=== PATIENT | male | born 1940 | race Caucasian/White ===

== ENCOUNTER 2021-12-31 08:22 | Outpatient (CLI) | payer MEDICARE, SELFPAY ==
[2021-12-31 08:43] LABS: Basophils Absolute Auto 0.06 K/mm3 (0.00-0.10); Basophils Percent Auto 0.9 % (0.0-1.0); Eosinophils Absolute Auto 0.15 K/mm3 (0.02-0.50); Eosinophils Percent Auto 2.3 % (1.0-6.0); Hemoglobin 15.4 g/dL (12.4-15.3); Immature Granulocyte Absolute 0.06 K/mm3 (0.00-0.00); Immature Granulocyte Percent A 0.9 % (0.0-0.0); Lymphocytes Absolute Auto 2.18 K/mm3 (1.10-4.50); Lymphocytes Percent Auto 33.5 % (18.0-42.0); Mean Corpuscular HGB Conc 33.5 g/dL (32.0-36.0); Mean Corpuscular Hemoglobin 29.8 pg (27.0-31.0); Mean Platelet Volume 9.7 fl (8.7-11.0); Monocytes Absolute Auto 0.63 K/mm3 (0.10-0.90); Monocytes Percent Auto 9.7 % (2.0-11.0); Neutrophils Absolute Auto 3.4 K/mm3 (1.7-7.2); Neutrophils Percent Auto 52.7 % (50.0-70.0); Platelet Count Result 225 K/mm3 (150-420); Red Blood Count 5.17 M/mm3 (4.70-6.10); Red Cell Distribution Width 11.8 % (11.6-14.4); White Blood Count 6.5 K/mm3 (4.8-10.8)
[2021-12-31 09:12] LABS: Alanine Aminotransferase 41 U/L (16-63); Albumin Level 3.7 g/dL (3.4-5.0); Alkaline Phosphatase 89 U/L (46-116); Anion Gap 6 mmol/L (8-16); Aspartate Amino Transferase 24 U/L (15-37); Bilirubin,Total 0.6 mg/dL (0.00-1.00); Blood Urea Nitrogen 19 mg/dL (7-18); Calcium 8.6 mg/dL (8.5-10.1); Carbon Dioxide 29 mmol/L (21-32); Chloride 103 mmol/L (98-108); Cholesterol 189 mg/dL (0-200); Estimated Glomerular Filt Rate > 60; Glucose 101 mg/dL (70-99); HDL Direct 54 mg/dL (40-60); LDL Cholesterol Calculated 114 mg/dL (<130); Osmolality Calculated 288 mOsm/kg (285-295); Potassium 4.1 mmol/L (3.5-5.1); Prostate Specific Antigen 5.2 ng/mL (< OR = 4.0); Sodium 138 mmol/L (136-145); Triglycerides 107 mg/dL (0-150)
== END 2021-12-31 08:23 | disposition home or self-care (01) ==
PROVIDERS: PCP Internal Medicine; Visit Provider Internal Medicine
DX: E78.5 Hyperlipidemia, unspecified (principal); Z12.5 Encounter for screening for malignant neoplasm of prostate; Z00.00 Encounter for general adult medical examination without abnormal findings
CPT/HCPCS: 36415; 80053; 80061; 84153; 84443; 85025; G0103

== ENCOUNTER 2022-02-20 05:51 | Emergency (ER) | payer MEDICARE, SELFPAY ==
[2022-02-20 05:54] VITALS: BP 153/86; PULSE 88; RESP 18; TEMP 35.9; O2SAT 100
[2022-02-20 05:55] VITALS: TEMP 36
--- NOTE | 2022-02-20 06:26 | ED.GENADULT ---
HPI - General Adult General Chief complaint: Urogenital-Male Stated complaint: unable to urinate; constipation Time Seen by Provider: 02/20/22 05:58 History of Present Illness HPI narrative: 81-year-old male presented to the emergency department for evaluation of increased urinary retention. Patient states he has had some issues with a slowing of the stream but states that he is currently unable to urinate at all. Patient states he does have follow-up scheduled with primary care physician to have a PSA measured. Patient denies any prior history of urinary retention and does not have a urologist. Patient does have history of an elevated PSA and high cholesterol Related Data Home Medications Medication Instructions Recorded Confirmed fluoxetine 10 mg capsule 50 mg PO DAILY 06/19/21 01/29/22 multivitamin (Multiple Vitamins 1 tablet PO DAILY 06/19/21 01/29/22 tablet) omega 8-euw-jdb-fish oil 1,000 mg 1 cap PO DAILY 06/19/21 01/29/22 (120 mg-180 mg) capsule (Fish Oil) simvastatin 80 mg tablet 40 mg PO DAILY 06/19/21 01/29/22 tamsulosin 0.4 mg capsule 0.4 mg PO DAILY 06/19/21 01/29/22 Allergies Allergy/AdvReac Type Severity Reaction Status Date / Time No Known Allergies Allergy Verified 02/20/22 07:04 Review of Systems Review of Systems: CONSTITUTIONAL: Denies fever, chills, or sweats. EYES: Denies visual changes, redness, or discharge. ENT: Denies rhinorrhea, congestion, sore throat, or otalgia. CARDIOVASCULAR: Denies chest pain, palpitations, or edema. RESPIRATORY: Denies cough or dyspnea. GASTROINTESTINAL: Denies abdominal pain, nausea, vomiting, or diarrhea. GENITOURINARY: See HPI SKIN: Denies rash or itching. MUSCULOSKELETAL: Denies back pain, joint pain, or myalgia. NEUROLOGIC: Denies headache, numbness, or weakness. PSYCHIATRIC: Denies anxiety or depression. [facility] Social History Social History Smoking status: Former smoker Alcohol intake: current Drinks per week: 4 Substance use: never Substance use type: does not use Gender identity (if verbalized by the patient): Male Sexual Orientation (if Verbalized by the Patient): Straight or Heterosexual Spiritual care concerns: No Agree to blood products: Yes Exam Narrative: APPEARANCE: Well appearing, no pain, no distress, well-nourished. HEAD: normocephalic, atraumatic. EYES: PERRLA/EOMI, conjunctivae clear. NOSE: Normal no drainage NECK: Supple. No adenopathy, no masses. RESPIRATORY: Airway patent, respirations nonlabored. Clear to auscultation bilaterally, no rales, rhonchi, wheezing. CARDIOVASCULAR: Regular rate and rhythm without murmurs rubs or gallops. ABDOMINAL: Soft, abdominal distention, normal bowel sounds, MUSCULOSKELETAL: Moves all extremities. Strength/ROM intact, No edema, No calf tenderness. NEURO: Alert. Cranial nerves II through XII intact. Grossly intact SKIN: Warm, dry. Normal Color Course Course Emergency Course: Patient a significant amount of urine through the Painting catheter. Patient's abdomen is soft and nontender. Patient denies any complaints at this time. UA showed no evidence of urinary tract infection. Patient was started on Flomax and encouraged to have close follow-up with urology. Vital Signs Vital signs: Vital Signs Temperature 96.6 F L 02/20/22 05:54 Pulse Rate 88 02/20/22 05:54 Respiratory Rate 18 02/20/22 05:54 Blood Pressure 153/86 H 02/20/22 05:54 Pulse Oximetry 100 02/20/22 05:54 Oxygen Delivery Room Air 02/20/22 05:54 Temperature 96.8 F L 02/20/22 05:55 Pulse Rate 88 02/20/22 05:54 Respiratory Rate 18 02/20/22 05:54 Blood Pressure 153/86 H 02/20/22 05:54 Pulse Oximetry 100 02/20/22 05:54 Oxygen Delivery Room Air 02/20/22 05:54 Medical Decision Making Vital Signs Vital Signs: Vital Signs Temperature 96.6 F L 02/20/22 05:54 Pulse Rate 88 02/20/22 05:54 Respiratory Rate 18
[2022-02-20 07:03] LABS: Appearance Urine Clear (Clear); Bilirubin Urine Negative (Negative); Blood Urine Negative (Negative); Color Urine Yellow (Yellow); Glucose Urine UA Negative (Negative); Ketones Urine Negative (Negative); Leukocyte Esterase Ur Negative LEU/UL (Negative); Nitrate Urine Negative (Negative); Protein Urine Negative (Negative); Specific Grav Ur 1.015 (1.001-1.035); Urobilinogen Urine 0.2 mg/dL (<2.0)
[2022-02-20 07:09] LABS: Add Urine Microscopic? NO
--- NOTE | 2022-02-20 07:17 | PC.NURSE ---
Education done with bojorquez bag and leg drainage bag, and pt able to verbal understanding and demonstrate at this time.
[2022-02-20] MEDS: TAMSULOSIN HCL 0.4 MG CAPSULE PO (07:24)
== END 2022-02-20 07:42 | disposition home or self-care (01) ==
PROVIDERS: Emergency Provider Emergency Medicine; PCP Family Medicine
DX: R33.9 Retention of urine, unspecified (principal); E78.00 Pure hypercholesterolemia, unspecified; Z87.891 Personal history of nicotine dependence
CPT/HCPCS: 51702; 81003; 99283; A9270

== ENCOUNTER 2022-02-28 09:52 | Outpatient (CLI) | payer MEDICARE, SELFPAY ==
[2022-02-28 11:17] LABS: Prostate Specific Antigen 4.5 ng/mL (< OR = 4.0)
== END 2022-02-28 09:53 | disposition home or self-care (01) ==
PROVIDERS: PCP Family Medicine; Visit Provider Nurse Practitioner Family
DX: R97.20 Elevated prostate specific antigen [PSA] (principal); Z12.5 Encounter for screening for malignant neoplasm of prostate
CPT/HCPCS: 36415; 84153; G0103

== ENCOUNTER 2022-08-20 11:01 | Outpatient (CLI) | payer MEDICARE, SELFPAY ==
--- NOTE | ~2022-08-20 | XR_ITS ---
EXAM: XR lumbar spine 6V w bending DATE: 08/20/2022 11:37 HISTORY: lumbar back pain . COMPARISON: None available. FINDINGS: 5 nonrib-bearing lumbar-type vertebral bodies. Pedicles intact. Normal vertebral body alig nment. No listhesis detected in flexion or extension. Vertebral body heights preserved. Multilevel di sc space narrowing and marginal osteophytosis, moderate at L1-2 and L4-5. Multilevel facet sclerosis and hypertrophy with interspinous narrowing. Aortic calcification without significant aneurysm. No fr acture or dislocation. Incidental note of mild anterior wedge deformity at T12, possibly physiologic. IMPRESSION: Multilevel moderate lumbar degenerative disc disease. Multilevel moderate lumbar facet ar thropathy with interspinous narrowing. Reviewed, dictated and finalized at location K. IMPRESSION: Multilevel moderate lumbar degenerative disc disease. Multilevel mo derate lumbar facet arthropathy with interspinous narrowing.
== END 2022-08-20 11:02 | disposition home or self-care (01) ==
LOC: ANHIMG 11:03
PROVIDERS: PCP Family Medicine; Visit Provider Nurse Practitioner Family
DX: M54.50 Low back pain, unspecified (principal); M51.36 Other intervertebral disc degeneration, lumbar region; M47.816 Spondylosis without myelopathy or radiculopathy, lumbar region
CPT/HCPCS: 72114

== ENCOUNTER 2022-11-14 09:48 | Outpatient (CLI) | payer MEDICARE, SELFPAY ==
--- NOTE | ~2022-11-14 | XR_ITS ---
Left ankle Technique: AP and lateral views were obtained. Clinical History: Effusion Findings: No acute fracture or dislocation is seen. Osseous alignment is anatomic. Ankle mortise and other visualized joint spaces are preserved. Soft tissues are otherwise unremarkable. Impression: Unremarkable left ankle. Reviewed, dictated and finalized at location . Impression: Unremarkable left ankle.
--- NOTE | ~2022-11-14 | XR_ITS ---
AP and lateral views of the left tibia/fibula Clinical History: Soft tissue disorder Findings: No acute fracture or dislocation is seen. Osseous alignment is anatomic. Joint spaces are p reserved without significant erosive or degenerative change. Soft tissues are unremarkable. Impression: Unremarkable left tib-fib radiographs. Reviewed, dictated and finalized at [facility]. Impression: Unremarkable left tib-fib radiographs.
== END 2022-11-14 09:49 | disposition home or self-care (01) ==
PROVIDERS: PCP Family Medicine; Visit Provider Nurse Practitioner Family
DX: M79.89 Other specified soft tissue disorders (principal); M25.472 Effusion, left ankle
CPT/HCPCS: 73590; 73600

== ENCOUNTER 2022-12-06 06:39 | Outpatient (CLI) | payer MEDICARE, SELFPAY ==
[2022-12-06 07:52] LABS: Hematocrit 45.5 % (42.0-52.0); Hemoglobin 15.2 g/dL (14.0-18.0); Mean Corpuscular HGB Conc 33.4 g/dl (32-36); Mean Corpuscular Hemoglobin 29.9 pg (26-34); Mean Corpuscular Volume 89.6 fl (80-100); Mean Platelet Volume 10.3 fl (7.4-10.4); Platelet Count Result 226 k/mm3 (150-375); Red Blood Count 5.08 M/mm3 (4.6-6.20); Red Cell Distribution Width 12.2 % (11.5-14.5); White Blood Count 6.4 K/mm3 (4.5-10.0)
[2022-12-06 08:22] LABS: LDL Cholesterol Direct 91 mg/dL
[2022-12-06 08:28] LABS: Alanine Aminotransferase 28 U/L (6-50); Albumin Level 4.3 g/dL (3.5-5.1); Alkaline Phosphatase 60 U/L (38-126); Anion Gap 8 mmol/L (8-16); Aspartate Amino Transferase 35 U/L (17-59); Bilirubin,Total 0.8 mg/dL (0.2-1.3); Blood Urea Nitrogen 16 mg/dL (9-20); Calcium 8.6 mg/dL (8.4-10.2); Carbon Dioxide 29 mmol/L (22-30); Chloride 103 mmol/L (98-107); Cholesterol 170 mg/dL (0-200); Estimated Glomerular Filt Rate > 60; Glucose 94 mg/dL (65-110); HDL Direct 48 mg/dL; Potassium 4.1 mmol/L (3.4-5.0); Sodium 140 mmol/L (137-145); Triglycerides 121 mg/dL (<150)
== END 2022-12-06 06:40 | disposition home or self-care (01) ==
PROVIDERS: PCP Family Medicine; Visit Provider Family Medicine
DX: I49.9 Cardiac arrhythmia, unspecified (principal); N28.9 Disorder of kidney and ureter, unspecified; E78.5 Hyperlipidemia, unspecified; Z13.220 Encounter for screening for lipoid disorders
CPT/HCPCS: 36415; 80048; 80061; 80076; 84443; 85027

== ENCOUNTER 2023-06-09 17:49 | Observation (INO) | payer MEDICARE, SELFPAY ==
--- NOTE | ~2023-06-09 | XR_ITS ---
EXAMINATION: XR chest 2V DATE: 06/09/2023 19:02 INDICATION: Chest pain. TECHNIQUE: Frontal and lateral views of the chest were obtained. COMPARISON: None. FINDINGS: There is mild scarring at the lung apices. Calcified right lung nodules and calcified right hilar lymph nodes are consistent with old granulomatous disease. No pleural effusion or pneumothorax . The heart size is normal. There is mild chronic height loss of a midthoracic vertebral body. IMPRESSION: 1. Mild scarring at the lung apices. Reviewed, dictated and finalized at location E. CRINOLOGY TEACHER
--- NOTE | ~2023-06-09 | NM_ITS ---
EXAMINATION: NM stress w perf spect multi DATE: 06/10/2023 12:52 INDICATION: Chest pain TECHNIQUE: Rest images were obtained following intravenous administration of 9.8 mCi Tc99m tetrofosmi n (Minbox). The patient performed an exercise activity. At peak exercise, 31.0 mCi Tc99m tetrofosmin (NTRglobalview) was administered intravenously, and stress images were obtained. Imaging was performed in the supine position with repeat post stress images obtained in the prone position. Data was reconstru cted into short axis and horizontal and vertical long axis SPECT images. Gated SPECT images were also obtained. COMPARISON: None. FINDINGS: There is artifactual decreased activity at the apex, periapical segments and mid segments along the i nferior wall which normalizes on the post stress images obtained in the prone position. No definitive perfusion defects on the prone imaging. There is normal left ventricular chamber size, wall motion a nd ejection fraction. Left ventricular ejection fraction measures 62%. IMPRESSION: 1. Normal post stress perfusion imaging in the prone position. 2. Left ventricular ejection fraction measuring 62%. Reviewed, dictated and finalized at location A. LIGHT INSTALLER
--- NOTE | 2023-06-09 17:51 | ECG_ITS ---
Measurements Intervals [place] Rate: 71 P: 72 NH: 171 QRS: -62 QRSD: 118 T: 68 QT: 380 QTc: 415 Interpretive Statements SINUS RHYTHM LOW QRS VOLTAGE IN PRECORDIAL LEADS INCOMPLETE RIGHT BUNDLE BRANCH BLOCK LEFT ANTERIOR FASCICULAR BLOCK BASELINE ARTIFACT- I, II, AVR, V3-V4 ABNORMAL ECG NO PREVIOUS ECG AVAILABLE FOR COMPARISON Electronically Signed On 06-10-2023 6:35:25 OFFSET PRESS OPERATOR HELPER by Teo King D.O.
[2023-06-09 17:55] VITALS: BP 150/85; PULSE 72; RESP 16; TEMP 36.6; O2SAT 100
[2023-06-09 18:10] LABS: Basophils Absolute Auto 0.1 K/mm3 (0.0-0.1); Basophils Percent Auto 0.6 % (0.2-1.2); Eosinophils Absolute Auto 0.1 K/mm3 (0-0.3); Eosinophils Percent Auto 0.9 % (0-4.4); Hematocrit 46.7 % (42.0-52.0); Immature Granulocyte Absolute 0.04 K/mm3 (0.00-0.031); Immature Granulocyte Percent A 0.4 % (0-0.5); Lymphocytes Absolute Auto 1.87 K/mm3 (0.9-3.2); Lymphocytes Percent Auto 19.2 % (18.3-44.2); Mean Corpuscular HGB Conc 32.1 g/dl (32-36); Mean Corpuscular Hemoglobin 29.5 pg (26-34); Mean Corpuscular Volume 91.9 fl (80-100); Mean Platelet Volume 9.8 fl (7.4-10.4); Monocytes Absolute Auto 1.2 K/mm3 (0.1-0.6); Monocytes Percent Auto 11.9 % (2.6-8.5); Neutrophils Absolute Auto 6.5 K/mm3 (1.3-6.7); Platelet Count Result 242 k/mm3 (150-375); Red Blood Count 5.08 M/mm3 (4.6-6.20); Red Cell Distribution Width 12.1 % (11.5-14.5); White Blood Count 9.7 K/mm3 (4.5-10.0)
[2023-06-09 18:20] LABS: Alanine Aminotransferase 23 U/L (6-50); Albumin Level 4.6 g/dL (3.5-5.1); Alkaline Phosphatase 92 U/L (38-126); Anion Gap 5 mmol/L (8-16); Aspartate Amino Transferase 26 U/L (17-59); Bilirubin,Total 0.5 mg/dL (0.2-1.3); Blood Urea Nitrogen 20 mg/dL (9-20); Calcium 9.3 mg/dL (8.4-10.2); Carbon Dioxide 32 mmol/L (22-30); Chloride 100 mmol/L (98-107); Estimated CRCL calculation 63 ml/min; Estimated Glomerular Filt Rate > 60; Glucose 99 mg/dL (65-110); Lipase 100 U/L (23-300); Potassium 4.4 mmol/L (3.4-5.0); Sodium 137 mmol/L (137-145)
[2023-06-09 18:21] LABS: Prothrombin Time 13.1 Seconds (11.1-14.7)
[2023-06-09 18:22] LABS: Partial Thromboplastin Time 27.7 SECONDS (22.3-36.8)
[2023-06-09 18:31] LABS: Troponin I < 0.012 ng/mL (0.000-0.034)
[2023-06-09 19:46] VITALS: BP 135/78; PULSE 74; RESP 16; O2SAT 100; O2SAT 99
--- NOTE | 2023-06-09 20:37 | ED.CHESTPAIN ---
HPI - Chest Pain General Chief Complaint: Chest Pain Stated Complaint: chest pain Time Seen by Provider: 06/09/23 19:26 History of Present Illness HPI narrative: Patient is an 82-year-old male with a history of hyperlipidemia presenting with chest heaviness. States that he woke up this morning with substernal chest heaviness that has persisted throughout the day. Started to feel worse this evening associated with shortness of breath so he came in for evaluation. Denies diaphoresis or nausea. States that it is not actually pain, it is more a discomfort related to pressure. He denies cardiac history. Has never had a stress test. No cough for fevers, no abdominal pain, no leg swelling. Related Data Home Medications Medication Instructions Recorded Confirmed fluoxetine 10 mg capsule 50 mg PO DAILY 06/19/21 06/09/23 multivitamin (Multiple Vitamins 1 tablet PO DAILY 06/19/21 06/09/23 tablet) omega 1-oqq-zmy-fish oil 1,000 mg 1 cap PO DAILY 06/19/21 06/09/23 (120 mg-180 mg) capsule (Fish Oil) simvastatin 80 mg tablet 40 mg PO DAILY 06/19/21 06/09/23 Allergies Allergy/AdvReac Type Severity Reaction Status Date / Time No Known Allergies Allergy Verified 06/09/23 19:47 Review of Systems Review of Systems: All systems reviewed & are unremarkable except as noted in HPI and below PMFSH Past Medical History Medical History (Updated 06/14/23 @ 21:45 by Liudmila Gaston MD) BMI 28.0-28.9,adult BPH (benign prostatic hyperplasia) Essential hypertension Hyperlipidemia Onychomycosis Surgical History Surgical History (Updated 06/10/23 @ 05:14 by Ines Ramey DO) History of vasectomy Hx of tonsillectomy Status post cataract extraction of both eyes with insertion of intraocular lens Family History Family History Father Mother Cerebrovascular accident Sibling Obesity Tobacco abuse Sibling No problems noted. Social History Social History (Updated 06/10/23 @ 05:12 by Ines Ramey DO) Social History: Patient lives with his of 62 years. He used to work in [employer] but is now retired. He smoked about a pack of cigarettes per day for 20-25 years but quit smoking over 35 years ago. He used to drink alcohol 3 to 4 times a week in moderation but has not done so in many years due to medications. Code status: DNR/DNI per patient request Healthcare power of disability attorney: Smoking packs per day: 1 Smoking cigarettes per day: 20.0 Years smoked: 35 Smoking pack-years: 35.00 Smoking status: Former smoker Tobacco type: cigarettes Second hand tobacco smoke exposure: No Alcohol intake: former Drinks per week: 4 Substance use: never Substance use type: does not use Do You Feel Safe in your Home?: Yes Lack of Transportation: No Lack of Food: Never True Current Housing: I Have Housing Concerned About Future Housing: No Difficulty Paying Gas/Electric Bills: No Difficulty Paying for Meds: No Currently Unemployed: No Education: High School Diploma/GED Difficulty w/ Childcare or Family Care: No Living arrangements: with family Occupation/Education: retired 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 EYES: PERRLA and EOMI. ENT: Mucous membranes moist. NECK: Supple. CHEST: Clear to auscultation. No respiratory distress. HEART: Regular rate and rhythm. no chest wall tenderness ABDOMEN: Soft, nontender, nondistended EXTREMITIES: Normal range of motion. No edema. SKIN: Warm, dry, no rash. NEURO: No focal deficits.
--- NOTE | 2023-06-09 20:53 | ECG_ITS ---
Measurements Intervals [place] Rate: 68 P: 60 CT: 189 QRS: -63 QRSD: 114 T: 50 QT: 384 QTc: 410 Interpretive Statements SINUS RHYTHM INCOMPLETE RIGHT BUNDLE BRANCH BLOCK LEFT ANTERIOR FASCICULAR BLOCK BASELINE ARTIFACT- I, II, AVR ABNORMAL ECG COMPARED TO ECG 06/09/2023 17:55:31 NO SIGNIFICANT CHANGES Electronically Signed On 06-10-2023 6:42:19 [employer]SIDE [employer] by Teo King D.O.
[2023-06-09 21:05] VITALS: BP 125/79; PULSE 68; RESP 16; O2SAT 100
[2023-06-09 21:32] LABS: Troponin I < 0.012 ng/mL (0.000-0.034)
[2023-06-09 22:01] VITALS: BP 132/74; PULSE 72; RESP 22; O2SAT 100
[2023-06-09 22:25] VITALS: BP 147/71; PULSE 72; RESP 16; TEMP 36.1; O2SAT 99
--- NOTE | 2023-06-09 22:28 | ADMGEN ---
This patient, Wang Harding, was admitted to IMU Room 211-01. Patient/family oriented to hospital policies and general routines including ID bracelet, bed and alarms, visiting hours, pain management, procedures, bathroom and other care routines, personal items, smoking policy, room service/diet, and visiting hours. Information on how to activate the Rapid Response Team has been discussed. Patient/Family are encouraged to report perceived risks to care and to ask questions if they do not understand what they are told or what they should do.
[2023-06-09 22:29] VITALS: BMI 26.5
--- NOTE | 2023-06-09 22:45 | PC.NURSE ---
Patient phone number [phone]. Patient using his phone currently
--- NOTE | 2023-06-09 23:46 | PM.IMHP ---
H&P: HPI History of Present Illness Date/Time: 06/09/23 23:46 Chief Complaint: Chest pressure Narrative: 82-year-old male with past medical history of is hypertension and hyperlipidemia who presented to the ER from home due to chest pressure and heaviness. The patient reports that he woke up from sleep with sensation. This sensation is substernal but he indicates it is worse when he lays on his right arm. S sensation usually last about 5 minutes in his jbua-vt-vivrhkeb in nature. He reports that is not necessarily worse with activity but he did notice more discomfort when he will got done walking across the room and sat down in his chair. He gestures to the right side of his chest when referring to this discomfort at that time. He had reported to the triage nurse that he was having lots of belching today. He has had some shortness of breath associated with the discomfort. He denies any pleuritic pain or discomfort. However he denied any indigestion or excessive belching at the time of my evaluation. He denies any GERD. He reports that he is minimally active at home and what is mostly sedentary. He has not noticed any lower extremity swelling, calf pain, orthopnea or paroxysmal nocturnal dyspnea. He has never had a stress test or known heart history. He denies any cough, congestion, fevers or chills. In the ER chest x-ray was unremarkable except for scarring at the lung apices. EKG which was personally reviewed demonstrated low-voltage QRS in precordial leads and left axis deviation with incomplete right bundle-branch block. Patient received 3 in 24 mg aspirin in the ER. He has not had recurrence of chest pressure since arrival to the hospital. He reports chronic weak urinary stream. And has to get up twice a night to urinate which is not unusual for him. Denies any hematochezia or melena. He does have intermittent constipation any at a small bowel movement on the but had not had a bowel movement for 4 days prior to that. Review of Systems Review of Systems: 12 systems were reviewed with pertinent positives and negatives per HPI. Except as documented in the HPI, all other systems were reviewed and are negative. [facility] Past Medical History Medical History (Updated 06/10/23 @ 05:17 by Ines Ramey DO) BMI 28.0-28.9,adult BPH (benign prostatic hyperplasia) Essential hypertension Hyperlipidemia Onychomycosis Surgical History Surgical History (Updated 06/10/23 @ 05:14 by Ines Ramey DO) History of vasectomy Hx of tonsillectomy Status post cataract extraction of both eyes with insertion of intraocular lens Family History Family History Father Mother Cerebrovascular accident Sibling Obesity Tobacco abuse Sibling No problems noted. Social History Social History (Updated 06/10/23 @ 05:12 by Ines Ramey DO) Social History: Patient lives with his of 62 years. He used to work in [employer] but is now retired. He smoked about a pack of cigarettes per day for 20-25 years but quit smoking over 35 years ago. He used to drink alcohol 3 to 4 times a week in moderation but has not done so in many years due to medications. Code status: DNR/DNI per patient request Healthcare power of deputy prosecuting attorney: Smoking packs per day: 1 Smoking cigarettes per day: 20.0 Years smoked: 35 Smoking pack-years: 35.00 Smoking status: Former smoker Tobacco type: cigarettes Second hand tobacco smoke exposure: No Alcohol intake: former Drinks per week: 4 Substance use: never Substance use type: does not use Do You Feel Safe in your Home?: Yes Lack of Transportation: No Lack of Food: Never True Current Housing: I Have Housing Concerned About Future Housing: No Difficulty Paying Gas/Electric Bills: No Difficulty Paying for Meds: No Currently Unemployed: No Education: High Sc
[2023-06-09 23:54] VITALS: BP 128/69; PULSE 70; RESP 16; TEMP 36.4; O2SAT 97
[2023-06-10] VITALS (10 sets, daily range): BP systolic 113–137; BP diastolic 55–89; PULSE 65–96; RESP 16–20; TEMP 36.5–36.8; O2SAT 96–97
--- NOTE | 2023-06-10 | EST_ITS ---
Patient Info Name: Wang Harding Age: 82 years : 1940 Gender: Male Ht: 70 in Wt: 185 lbs BSA: 2.05 m2 HR: 81 bpm BP: 124 / 66 mmHg Exam Date: 06/10/2023 11:30 AM Exam Location: Echo Lab Patient Status: Inpatient Admit Date: 06/09/2023 Staff Ordering Physician: Ines Ramey DO Attending Provider: Ines Ramey DO Exercise Technologist: Cheri Gutierrez RD Exercise Physician: Teo King DO Exam Type: CA stress test treadmill w NM Study Info A nuclear stress test was performed. Summary 1. 1. Negative Angel exercise stress test for ischemic ST changes by ECG criteria. 2. 2. Good functional capacity, achieving 6.5 METs of workload. 3. 3. Appropriate HR response to exercise. 4. 4. Appropriate HR recovery at 1 minute post exercise. 5. 5. Nuclear scan to follow and will be reported separately. Please correlate with it. 6. 6. Patient informed of the above results. Protocol: Angel Stress ECG Details Stage: REST Duration (min): 1 min : 11 sec Speed (mph): 0.0 Grade (%): 0 HR (bpm): 80 SBP (mmHg): 124 DBP (mmHg): 66 METS: --- Stage: REST Duration (min): 6 min : 55 sec Speed (mph): 0.0 Grade (%): 0 HR (bpm): 90 SBP (mmHg): 124 DBP (mmHg): 66 METS: --- Stage: STAGE 1 Duration (min): 1 min : 0 sec Speed (mph): 1.7 Grade (%): 10 HR (bpm): 98 SBP (mmHg): 124 DBP (mmHg): 66 METS: --- Stage: STAGE 1 Duration (min): 2 min : 0 sec Speed (mph): 1.7 Grade (%): 10 HR (bpm): 113 SBP (mmHg): 124 DBP (mmHg): 66 METS: --- Stage: STAGE 1 Duration (min): 3 min : 0 sec Speed (mph): 1.7 Grade (%): 10 HR (bpm): 115 SBP (mmHg): 164 DBP (mmHg): 64 METS: --- Stage: STAGE 2 Duration (min): 1 min : 0 sec Speed (mph): 2.5 Grade (%): 12 HR (bpm): 121 SBP (mmHg): 164 DBP (mmHg): 64 METS: --- Stage: STAGE 2 Duration (min): 1 min : 0 sec Speed (mph): 2.5 Grade (%): 12 HR (bpm): 120 SBP (mmHg): 164 DBP (mmHg): 64 METS: --- Stage: RECOVERY Duration (min): 0 min : 59 sec Speed (mph): 0.0 Grade (%): 0 HR (bpm): 113 SBP (mmHg): 158 DBP (mmHg): 53 METS: --- Stage: RECOVERY Duration (min): 1 min : 59 sec Speed (mph): 0.0 Grade (%): 0 HR (bpm): 103 SBP (mmHg): 158 DBP (mmHg): 53 METS: --- Stage: RECOVERY Duration (min): 2 min : 59 sec Speed (mph): 0.0 Grade (%): 0 HR (bpm): 89 SBP (mmHg): 131 DBP (mmHg): 55 METS: --- Stage: RECOVERY Duration (min): 3 min : 10 sec Speed (mph): 0.0 Grade (%): 0 HR (bpm): 91 SBP (mmHg): 131 DBP (mmHg): 55 METS: --- Rest HR: 90 bpm Peak HR: 122 bpm Rest Sys BP: 124 mmHg Peak Sys BP: 164 mmHg Max Pred HR: 137 bpm % Max Pred HR: 89 % Target HR: 116 bpm Max RPP: 20,008 bpm*mmHg Miramontes Score: -9 Termination Reason: Reached target heart rate or workload Cardiac Symptoms: Shortness of breath Max ST Seg Deviation: 3 mm Total Time: 4 min : 0 sec Rest Chandler BP: 66 mmHg Peak Chandler BP:
[2023-06-10 00:17] LABS: Troponin I < 0.012 ng/mL (0.000-0.034)
[2023-06-10] MEDS: MULTIVITAMINS THERAPEUTIC TAB (*BKC) 1 TABLET PO (08:34)
[2023-06-10] MEDS: TAMSULOSIN HCL 0.4 MG CAPSULE PO (08:34)
[2023-06-10] MEDS: SIMVASTATIN 20 MG TABLET 40 MG PO (08:34)
[2023-06-10] MEDS: FLUoxetine HCL 10 MG CAPSULE PO (08:34)
[2023-06-10] MEDS: ENOXAPARIN 40 MG/0.4 ML SYRINGE SUB-Q (08:34)
[2023-06-10] MEDS: FLUoxetine HCL 20 MG CAPSULE 40 MG PO (08:34)
[2023-06-10] MEDS: OMEGA 3 POLYUNSAT FATTY ACIDS 1 GM CAP PO (08:34)
--- NOTE | 2023-06-10 14:39 | PM.DS ---
DS: Admitting Diagnosis Discharge Date 06/10/23 Admitting Diagnosis Chest pain DS: Discharge Diagnosis Discharge Diagnosis (1) Chest pressure: Code(s): R07.89 - Other chest pain Status: Acute (2) Hyperlipidemia: Qualifiers: Hyperlipidemia type: unspecified Qualified Code(s): E78.5 - Hyperlipidemia, unspecified Code(s): E78.5 - Hyperlipidemia, unspecified Status: Acute (3) Essential hypertension: Code(s): I10 - Essential (primary) hypertension Status: Acute DS: Summary Hospital Course Reason for hospitalization: 82yo male with HTN and HLD who presents to the ER from home due to chest pressure and heaviness.??Please see H&P for details. Hospital Course: In the ER chest x-ray was unremarkable except for scarring at the lung apices.? EKG showed low-voltage QRS in precordial leads and left axis deviation with incomplete right bundle-branch block.? Patient received 324 mg aspirin in the ER.?Patient has heart score of 4. Three sets of cardiac enzymes were negative. Patient underwent treadmill stress tests which was negative Angel exercise stress test for ischemic ST changes by ECG criteria. He had good functional capacity and appropriate heart rate response and recovery. Nuclear medicine imaging showed normal post stress perfusion imaging in the prone position with an LV EF of 62%. He has not had recurrence of chest pressure since arrival to the hospital.? He overall did well and was able to be discharge home on 06/10/2023 Status at Discharge Cognitive/behavioral status at discharge: Stable Time Spent with Patient Time attestation: Total time spent providing and/or coordinating discharge services: 32 minutes Time spent: Greater than 30 minutes Exam Narrative: AF 98.2 137/89 87 20 96% ra Gen - NARD Chest - CTA bilaterally, nml RR CV - RRR S1/S2. Tele showing occasional PACs. Abd - Soft, NT/ND, Positive BS Ext - No pedal edema Psych - Nml mood and affect Skin - Warm and dry DS: Data Data Completed and Pending Labs on day of discharge: Labs from last 24 hours 06/09/23 06/09/23 06/09/23 23:49 21:04 18:02 WBC 9.7 RBC 5.08 Hgb 15.0 Hct 46.7 MCV 91.9 MCH 29.5 MCHC 32.1 RDW 12.1 Plt Count 242 MPV 9.8 Immature Gran % (Auto) 0.4 Neut % (Auto) 67.0 Lymph % (Auto) 19.2 Stafford % (Auto) 11.9 H Eos % (Auto) 0.9 Baso % (Auto) 0.6 Lymph # (Auto) 1.87 Stafford # (Auto) 1.2 H Eos # (Auto) 0.1 Baso # (Auto) 0.1 Abs Immat Gran (auto) 0.04 H Absolute Neuts (auto) 6.5 Absolute Nucleated RBC 0.0 Nucleated RBC % 0.0 PT 13.1 INR 1.0 APTT 27.7 Sodium 137 Potassium 4.4 Chloride 100 Carbon Dioxide 32 H Anion Gap 5 L BUN 20 Creatinine 0.80 Estim Creat Clear Calc 63 Estimated GFR > 60 Glucose 99 Calcium 9.3 Total Bilirubin 0.5 AST 26 ALT 23 Alkaline Phosphatase 92 Troponin I < 0.012 < 0.012 < 0.012 Total Protein 8.0 Albumin 4.6 Lipase 100 Discharge Plan Discharge Attending physician on discharge: Ivan Benitez Discharging Clinician: Ivan Benitez Anticipated Discharge Date/Time: 06/10/23 14:46 Patient Disposition: Home, Self-Care Activity: as tolerated Diet: heart healthy Discharge Instructions: Avoid NSAIDs (ibuprofen, naproxen, Aleve). Tylenol is safe to take. Follow-up with your primary care provider in 1-2 weeks. Please call for appointment. Thank you for using [facility] for your health care needs. Patient Instructions: Antibiotic Form Stand Alone Forms: General Discharge Information Follow-up/Referrals: Lukasz Banerjee MD [Primary Care Provider] - Call for Appointment Discharge Medications: Continued simvastatin 80 mg tablet 40 mg PO DAILY fluoxetine 10 mg capsule 50 mg PO DAILY multivitamin [Multiple Vitamins] Tabl
== END 2023-06-10 14:10 | disposition home or self-care (01) ==
LOC: ANHED 21:45 → ANHIMU 22:21
PROVIDERS: Emergency Medicine; Admitting Provider Internal Medicine; Emergency Provider Emergency Medicine; PCP Family Medicine; Visit Provider Internal Medicine
DX: R07.89 Other chest pain (principal); I45.2 Bifascicular block; J98.4 Other disorders of lung; E78.5 Hyperlipidemia, unspecified; I10 Essential (primary) hypertension; N40.0 Benign prostatic hyperplasia without lower urinary tract symptoms; R39.12 Poor urinary stream; K59.09 Other constipation; Z66 Do not resuscitate; Z87.891 Personal history of nicotine dependence; Z79.899 Other long term (current) drug therapy
CPT/HCPCS: 36415; 71046; 78452; 80053; 83690; 84484; 85025; 85610; 85730; 93005; 93017; 96372; 99285; A9270; A9502; G0378; J1650

== ENCOUNTER 2023-06-20 07:43 | Outpatient (CLI) | payer MEDICARE, SELFPAY ==
[2023-06-20 08:00] LABS: Hemoglobin 14.6 g/dL (14.0-18.0); Mean Corpuscular HGB Conc 33.2 g/dl (32-36); Mean Corpuscular Hemoglobin 29.9 pg (26-34); Mean Corpuscular Volume 90.2 fl (80-100); Mean Platelet Volume 9.4 fl (7.4-10.4); Platelet Count Result 225 k/mm3 (150-375); Red Blood Count 4.88 M/mm3 (4.6-6.20); Red Cell Distribution Width 12.1 % (11.5-14.5)
[2023-06-20 08:14] LABS: Alanine Aminotransferase 23 U/L (6-50); Albumin Level 4.1 g/dL (3.5-5.1); Alkaline Phosphatase 78 U/L (38-126); Anion Gap 6 mmol/L (8-16); Aspartate Amino Transferase 27 U/L (17-59); Bilirubin,Total 0.6 mg/dL (0.2-1.3); Blood Urea Nitrogen 18 mg/dL (9-20); Calcium 8.8 mg/dL (8.4-10.2); Carbon Dioxide 31 mmol/L (22-30); Chloride 102 mmol/L (98-107); Estimated Glomerular Filt Rate > 60; Glucose 100 mg/dL (65-110); Potassium 4.3 mmol/L (3.4-5.0); Sodium 139 mmol/L (137-145)
== END 2023-06-20 07:44 | disposition home or self-care (01) ==
LOC: ANHLAB 07:46
PROVIDERS: PCP Family Medicine; Visit Provider Family Medicine
DX: N28.9 Disorder of kidney and ureter, unspecified (principal); B35.1 Tinea unguium
CPT/HCPCS: 36415; 80048; 80076; 85027

== ENCOUNTER 2023-10-02 10:04 | Outpatient (CLI) | payer MEDICARE, SELFPAY | END 2023-10-02 10:05 | disposition home or self-care (01) | PROVIDERS: PCP Family Medicine; Visit Provider Physician Assistant Medical | DX: M25.562 Pain in left knee (principal) | CPT/HCPCS: 73562 ==

== ENCOUNTER 2024-05-05 10:26 | Outpatient (CLI) | payer MEDICARE, SELFPAY ==
[2024-05-05 11:06] LABS: Alanine Aminotransferase 21 U/L (6-50); Alkaline Phosphatase 80 U/L (38-126); Aspartate Amino Transferase 28 U/L (17-59); Bilirubin,Total 0.6 mg/dL (0.2-1.3)
== END 2024-05-05 10:27 | disposition home or self-care (01) ==
PROVIDERS: PCP Family Medicine; Visit Provider Nurse Practitioner Family
DX: B35.1 Tinea unguium (principal)
CPT/HCPCS: 36415; 80076

== ENCOUNTER 2024-05-25 09:47 | Outpatient (CLI) | payer MEDICARE, SELFPAY ==
--- NOTE | ~2024-05-25 | MR_ITS ---
MRI of the left knee Clinical history: Pain Technique: Coronal proton density and proton density-weighted images, sagittal proton-density and T2 fat-sat images, and axial proton-density fat-saturated images were acquired. Findings: There is diffuse increased signal of the ACL, with apparent intact fibers, compatible with mucoid degenerative change. Posterior cruciate ligament intact. Medial collateral ligament and the la teral collateral ligament complex are intact. Popliteus tendon is intact. There is complex tearing of the posterior horn and body medial meniscus, which are somewhat macerated appearance. Lateral meniscus intact. There is probable moderate chondromalacia towards the medial joint line. There is mild chondral disea se of the patellofemoral and lateral compartments. Extensor mechanism is intact. Small joint effusion present. No significant Bhatt's cyst. Impression: Extensive complex tearing of the posterior horn and body of medial meniscus. 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 Reviewed, dictated and finalized at [facility]. NIZATIONAL PSYCHOLOGIST Impression: Extensive complex tearing of the posterior horn and body of medial meniscus. 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
== END 2024-05-25 09:48 | disposition home or self-care (01) ==
LOC: MICIMG 09:49
PROVIDERS: PCP Family Medicine; Visit Provider Physician Assistant Medical
DX: S83.231A Complex tear of medial meniscus, current injury, right knee, initial encounter (principal); M94.262 Chondromalacia, left knee; M23.612 Other spontaneous disruption of anterior cruciate ligament of left knee
CPT/HCPCS: 73721